=== PATIENT | male | born 1940 | race Two or more races ===

== ENCOUNTER 2025-05-09 22:48 | Observation (INO) ==
--- NOTE | 2025-05-09 23:04 | Emergency Department Note ---
Impression & Plan Influenza A Admission ED Provider Note HPI: History obtained from patient and patient's nephew at the bedside. The patient is a 84-year-old gentleman with history of hypertension, type 2 diabetes, hyperlipidemia, who presents to the emergency department with a chief complaint of fever and confusion. Patient presents with his nephew at the bedside, he states over the past several days since the patient has been visiting him from out of town the patient has developed a cough, low-grade fever, and he seems to be slow to respond to some questions. He has had a diminished appetite today and overall complains of generalized weakness. Patient is alert on arrival, he is not fully oriented to place or year but he is oriented to self. Patient does not have any focal deficits on arrival. Patient is febrile on arrival but otherwise hemodynamically stable. Presenting blood pressure is 157/88, heart rate is within normal limits, temperature is 38.4 on arrival. Patient is saturating at 97% on room air on arrival. ROS: - Per HPI Differential Diagnosis: Viral upper respiratory infection to include COVID-19, influenza A, pneumonia, urinary tract infection, sepsis, meningitis, stroke, amongst other potential pathologies. *Outpatient medications and allergy history reviewed. PE: General: Alert HEENT: Normocephalic, trachea midline Eyes: Extraocular eye movement is intact, no scleral erythema Pulmonary: Clear to auscultation bilaterally, no wheezing Cardio: Regular rate and rhythm GI: Abdomen is soft to palpation : No suprapubic tenderness MSK: No evidence of trauma or malformation of the extremities, no edema Skin: No evidence of rash Neuro: Alert, no focal deficits, symmetrical facial movements are appreciated, no drift of the upper extremities or lower extremities with testing against gravity Psychiatric: Cooperative, oriented to self but not fully to time or place INDEPENDENT INTERPRETATIONS: night monitor: (As interpreted by myself): - An order was placed for continuous cardiac monitoring - Patient was noted to be in sinus rhythm with a rate of 92 EKG: (As interpreted by myself): Rate: 97 Rhythm: Sinus rhythm Intervals: Within normal limits ST changes: No ST elevation Time: 2254 Chest x-ray: (As interpreted by myself): No focal infiltrate Interventions provided in ED: - IV fluid bolus, Tylenol, potassium chloride, Tamiflu Medical Decision Making: IV was established and lab work obtained, patient was placed on night monitor. Patient was given Tylenol for fever. Lab work shows no leukocytosis, hemoglobin is stable at 12.5, platelet count is slightly low 124, venous blood gas shows pH of 7.44 and a pCO2 that is normal. CMP shows hyponatremia 126, potassium is slightly low at 3.2, there is no evidence of any acute renal failure, lactic acid is normal, troponin is negative, procalcitonin is low. Viral panel testing was obtained and the patient is positive for influenza A. I suspect this is the source of fever. Chest x-ray does not show any evidence of pneumonia, CT imaging of the head was obtained and shows no evidence of stroke or acute intracranial process. On my reassessment the patient is resting comfortably in bed, he was placed on nasal cannula oxygen for desaturations to 88% on room air and had good improvement in his oxygenation. I discussed admission with the patient's family including his nephew and his niece at the bedside who are both physicians. At this time they would like the patient to be admitted which I think is reasonable given his borderline oxygen saturations as well as his confusion. [facility] hospitalist service was consulted for admission and the patient was placed for admission in stable condition. Consultants/Discussions held with other healthcare providers: - Hospitalist, Dr. Dumont Disposition discussion held by myself with: - Patient's family at the bedside * CRITICAL CARE TIME: ( 38 ) minutes - Stabilization of hypoxia with oxygen saturations at 88% on room air requiring supplemental oxygen for correction, time spent at bedside, interpretation of diagnostic studies, discussion with other physicians and arrangement of admission. Diagnosis: 1. Hypoxia, acute 2. Influenza A infection, acute 3. Metabolic encephalopathy, acute 4. Hyponatremia, acute 5. Hypokalemia, acute Disposition: Admission Azeem Joyner DO Emergency Medicine Past Med/Surg History Problem List (Updated 05/10/25 @ 01:25 by Azeem Joyner DO) Influenza A (Acute) Social History Smoking Status: Never smoker Feels Safe at Home: No Allergies Allergies Allergy/AdvReac Type Severity Reaction Status Date / Time No Known Allergies Allergy Verified 05/09/25 23:44 Home Meds Home Medications Medication Instructions Recorded Confirmed amlodipine 10 mg tablet 10 mg PO QAM 05/10/25 05/10/25 atorvastatin 20 mg tablet 20 mg PO QPM 05/10/25 05/10/25 famotidine 40 mg tablet 40 mg PO DAILY 05/10/25 05/10/25 hydrochlorothiazide 12.5 mg tablet 12.5 mg PO QAM 05/10/25 05/10/25 hydrocortisone-pramoxine 1 %-1 % 1 applic DC BID PRN Hemorrhoids 05/10/25 05/10/25 rectal cream metformin 500 mg tablet 500 mg PO BIDM 05/10/25 05/10/25 Results & Data (ED) Vital Signs Vital Signs - 24 hr 05/09/25 22:40 05/09/25 22:40 05/09/25 22:55 Temperature 38.4 C H Temperature Source Oral Pulse Rate 96 H 90 Pulse Rate [Apical] Pulse Rhythm [Apical] Pulse Strength [Apical] Respiratory Rate 16 Respiratory Effort / Characteristics Respiratory Depth Respiratory Pattern Blood Pressure 157/88 H Blood Pressure [Left Arm] Blood Pressure Mean 111 Blood Pressure Mean [Left Arm] Blood Pressure Position [Left Arm] Pulse Oximetry 98 97 Oxygen Delivery Method Room Air Room Air Oxygen Flow Rate Sepsis Recent Fever Within 48 Hours Yes Sepsis New/Unexplained Change in Mental Status No Sepsis Action Taken by Nursing No Action Required 05/10/25 00:15 05/10/25 00:18 05/10/25 00:30 Temperature Temperature Source Pulse Rate Pulse Rate [Apical] 83 Pulse Rhythm [Apical] Regular Pulse Strength [Apical] Normal Respiratory Rate 19 Respiratory Effort / Characteristics Non-Labored Spontaneous Respiratory Depth Normal Respiratory Pattern Regular Blood Pressure Blood Pressure [Left Arm] 136/67 Blood Pressure Mean Blood Pressure Mean [Left Arm] 90 Blood Pressure Position [Left Arm] Lying Pulse Oximetry 88 L 97 96 Oxygen Delivery Method Room Air Nasal Cannula Nasal Cannula Oxygen Flow Rate 2 2 Sepsis Recent Fever Within 48 Hours Sepsis New/Unexplained Change in Mental Status Sepsis Action Taken by Nursing 05/10/25 01:00 Temperature Temperature Source Pulse Rate Pulse Rate [Apical] 92 H Pulse Rhythm [Apical] Pulse Strength [Apical] Normal Respiratory Rate 17 Respiratory Effort / Characteristics Non-Labored Spontaneous Respiratory Depth Normal Respiratory Pattern Regular Blood Pressure Blood Pressure [Left Arm] 143/77 H Blood Pressure Mean Blood Pressure Mean [Left Arm] 99 Blood Pressure Position [Left Arm] Pulse Oximetry 97 Oxygen Delivery Method Nasal Cannula Oxygen Flow Rate 2 Sepsis Recent Fever Within 48 Hours Sepsis New/Unexplained Change in Mental Status Sepsis Action Taken by Nursing Laboratory Data 05/09/25 23:20 12/26/25 23:20 Lab Results 05/09/25 Range/Units 23:20 WBC 5.50 (4.8-10.8) K/ul RBC 4.75 (4.70-6.10) M/uL Hgb 12.5 L (14.0-18.0) g/dL Hct 36.2 L (42.0-52.0) % MCV 76.2 L (80.0-100.0) fL MCH 26.3 (25.0-34.0) pg MCHC 34.5 (32.0-36.0) g/dL RDW Std Deviation 39.4 (36.4-46.3) fL RDW Coeff of Claudia 14.5 (11.5-14.5) % Plt Count 124 L (130-400) K/uL MPV 10.6 (9.4-12.4) fL Immature Gran % (Auto) 0.4 % Neut % (Auto) 66.7 % Lymph % (Auto) 12.7 % [place] % (Auto) 19.5 % Eos % (Auto) 0.2 % Baso % (Auto) 0.5 % Neut # (Auto) 3.67 (1.40-6.50) K/uL Lymph # (Auto) 0.70 L (1.20-3.40) K/uL [place] # (Auto) 1.07 H (0.11-0.59) K/uL Eos # (Auto) 0.01 (0.00-0.50) K/uL Baso # (Auto) 0.03 (0.00-0.20) K/uL Immature Gran # (Auto) 0.02 (0.01-0.20) K/uL PT 11.1 (9.0-12.0) Seconds INR 1.1 (0.9-1.1) VBG pH 7.44 H (7.36-7.41) VBG pCO2 49 (38-50) mmHg VBG pO2 27 mmHg VBG HCO3 33 mmol/L VBG O2 Saturation < 60.0 % VBG Base Excess 7.8 mEq/L Sodium 126 L (136-145) mmol/L Potassium 3.2 L (3.5-5.1) mmol/L Chloride 86 L (98-107) mmol/L Carbon Dioxide 31 (21-32) mmol/L Anion Gap 9 (3-11) BUN 13 (6-23) mg/dl Creatinine 0.77 (0.6-1.4) mg/dl Est Cr Clr Drug Dosing 65.6 ml/min eGFR 88.83 BUN/Creatinine Ratio 16.9 (10-20) Glucose 145 H (70-99(Fasting)) mg/dl Lactate 1.6 (0.4-2.0) mmol/L Calcium 9.0 (8.6-10.3) mg/dl Magnesium 1.7 (1.7-2.4) mg/dl Total Bilirubin 0.6 (0.2-1.0) mg/dl Direct Bilirubin 0.1 (0-0.2) mg/dl AST 22 (13-39) U/L ALT 20 (7-52) U/L Alkaline Phosphatase 72 (34-104) U/L Troponin I High Sens 11.0 (0-20) pg/ml Total Protein 7.1 (6.0-8.3) gm/dl Albumin 4.1 (3.4-5.0) gm/dl Procalcitonin 0.09 (0-0.5) ng/ml SARS-CoV-2 (PCR) NEGATIVE (Negative) Influenza Type A (PCR) Positive A (Neg) Influenza Type B (PCR) Negative (Neg) RSV (RT-PCR) Negative (Neg) Administered Medications Discontinued Medications Acetaminophen (Acetaminophen 500 Mg Tab) 1,000 mg PO NOW STA Stop: 05/09/25 23:06 Last Admin: 05/09/25 23:12 Dose: 1,000 mg Documented By: WILMER Sodium Chloride (Nss) 1,000 mls @ 999 mls/hr IV .Q1H1M OSITO Stop: 05/10/25 00:15 Last Infusion: 05/10/25 00:39 Dose: Infused Documented By: Admin: 05/09/25 23:25 Dose: 999 mls/hr Documented By: WILMER Oseltamivir Phosphate (Oseltamivir Phosphate 75 Mg Cap) 75 mg PO NOW STA Stop: 05/10/25 00:33 Last Admin: 05/10/25 00:37 Dose: 75 mg Documented By: WILMER Potassium Chloride (Potassium Chloride Pwd 20 Meq Pack) 40 meq PO NOW STA Stop: 05/10/25 00:08 Last Admin: 05/10/25 00:37 Dose: 40 meq Documented By: WILMER Imaging Data Radiologist's Impression: Chest X-Ray 05/09/25 23:01 Exam(s): XR CXR 1 VIEW EXAM: XR Chest, 1 View CLINICAL HISTORY: Reason for exam: Sepsis. TECHNIQUE: Frontal view of the chest. COMPARISON: No relevant prior studies available. FINDINGS: Lungs: Unremarkable. No consolidation. Pleural space: Unremarkable. No pneumothorax. Heart: Unremarkable. No cardiomegaly. Mediastinum: Unremarkable. Normal mediastinal contour. Bones/joints: Unremarkable. No acute fracture. IMPRESSION: Normal chest x-ray. Electronically signed by: Pedro Buitrago MD 05/10/25 01:[address] 05/09/25 23:02 CR Exam(s): CT HEAD Without Contrast EXAM: CT Head Without Intravenous Contrast CLINICAL HISTORY: Reason for exam: AMS. OTHER: Other Notes: ams, confusion TECHNIQUE: Axial computed tomography images of the head/brain without intravenous contrast. CTDI is 36.67 mGy and DLP is 624.41 mGy-cm. Automated exposure control was utilized for the study. A dose lowering technique was utilized adhering to the principles of ALARA. COMPARISON: No relevant prior studies available. FINDINGS: Brain: Mild ischemic microangiopathy. No hemorrhage. Ventricles: Unremarkable. No ventriculomegaly. Bones/joints: Unremarkable. No acute fracture. Soft tissues: Unremarkable. Sinuses: Polyp or mucus retention cyst left maxillary sinus inflammatory maxillary sinus. Mastoid air cells: Unremarkable as visualized. No mastoid effusion. IMPRESSION: No acute findings in the head/brain. Communications: Call Doctor Stroke Electronically signed by: Pedro Buitrago MD 05/10/25 01:11 AM Discharge Plan Visit Data Chief Complaint: Confusion Stated Complaint: Confusion ED Provider: Azeem Joyner Discharge Problem: Influenza A Patient Disposition: Admitted As Inpatient Condition: Fair Forms Stand Alone Forms: My [employer] Prescriptions Prescriptions: No Action metformin 500 mg tablet 500 mg PO BIDM atorvastatin 20 mg tablet 20 mg PO QPM famotidine 40 mg tablet 40 mg PO DAILY amlodipine 10 mg tablet 10 mg PO QAM hydrochlorothiazide 12.5 mg tablet 12.5 mg PO QAM hydrocortisone-pramoxine 1-1 % cream 1 applic DC BID PRN (Reason: Hemorrhoids) Referrals Referrals: PCP,NO [Physician] -
[2025-05-09] MEDS: ACETAMINOPHEN 500 MG TAB PO STA (23:12)
[2025-05-09] MEDS: SODIUM CHLORIDE 0.9% 1,000 ML IV SCH (23:25)
[2025-05-09 23:45] LABS: Base Excess VBG 7.8 mEq/L; HCO3 VBG 33 mmol/L; Oxygen Saturation VBG < 60.0 %; PCO2 VBG 49 mmHg (38-50); PO2 VBG 27 mmHg; pH VBG 7.44 (7.36-7.41)
[2025-05-09 23:48] LABS: Hematocrit (blood only) 36.2 % (42.0-52.0); Hemoglobin 12.5 g/dL (14.0-18.0); Immature Granulocytes # (auto) 0.02 K/uL (0.01-0.20); Immature Granulocytes % (auto) 0.4 %; Mean Corpuscular Hemoglobin 26.3 pg (25.0-34.0); Mean Corpuscular Volume 76.2 fL (80.0-100.0); Platelet Count 124 K/uL (130-400); RDW Standard Deviation 39.4 fL (36.4-46.3); Red Blood Count 4.75 M/uL (4.70-6.10); White Blood Count 5.50 K/ul (4.8-10.8)
[2025-05-10 00:04] LABS: Alanine Aminotransferase 20.0 U/L (7-52); Albumin Level 4.1 gm/dl (3.4-5.0); Alkaline Phosphatase 72.0 U/L (34-104); Anion Gap 9.0 (3-11); Bilirubin,Total 0.6 mg/dl (0.2-1.0); Blood Urea Nitrogen 13.0 mg/dl (6-23); Calcium 9.0 mg/dl (8.6-10.3); Carbon Dioxide 31.0 mmol/L (21-32); Chloride 86.0 mmol/L (98-107); Creatinine Clr Calc Pharmacy 65.6 ml/min; Glucose 145.0 mg/dl (70-99(Fasting)); Magnesium 1.7 mg/dl (1.7-2.4); Potassium 3.2 mmol/L (3.5-5.1); Sodium 126.0 mmol/L (136-145); Total Protein 7.1 gm/dl (6.0-8.3)
[2025-05-10 00:10] LABS: INR 1.1 (0.9-1.1); Prothrombin Time 11.1 Seconds (9.0-12.0)
[2025-05-10 00:22] LABS: Influenza A virus by PCR Positive (Neg); Influenza B virus by PCR Negative (Neg); SARS CoV2 RNA(COVID-19) Ceph NEGATIVE (Negative)
[2025-05-10] MEDS: OSELTAMIVIR PHOSPHATE 75 MG CAP PO STA (00:37)
[2025-05-10] MEDS: POTASSIUM CHLORIDE PWD 20 MEQ PACK PO STA (00:37)
--- NOTE | 2025-05-10 01:13 | CT Scan Report ---
Exam(s): CT HEAD Without Contrast EXAM: CT Head Without Intravenous Contrast CLINICAL HISTORY: Reason for exam: AMS. OTHER: Other Notes: ams, confusion TECHNIQUE: Axial computed tomography images of the head/brain without intravenous contrast. CTDI is 36.67 mGy and DLP is 624.41 mGy-cm. Automated exposure control was utilized for the study. A dose lowering technique was utilized adhering to the principles of ALARA. COMPARISON: No relevant prior studies available. FINDINGS: Brain: Mild ischemic microangiopathy. No hemorrhage. Ventricles: Unremarkable. No ventriculomegaly. Bones/joints: Unremarkable. No acute fracture. Soft tissues: Unremarkable. Sinuses: Polyp or mucus retention cyst left maxillary sinus inflammatory maxillary sinus. Mastoid air cells: Unremarkable as visualized. No mastoid effusion. IMPRESSION: No acute findings in the head/brain. Communications: Call Doctor Stroke Electronically signed by: Pedro Buitrago MD 05/10/25 01:11 AM
--- NOTE | 2025-05-10 01:14 | XRay Report ---
Exam(s): XR CXR 1 VIEW EXAM: XR Chest, 1 View CLINICAL HISTORY: Reason for exam: Sepsis. TECHNIQUE: Frontal view of the chest. COMPARISON: No relevant prior studies available. FINDINGS: Lungs: Unremarkable. No consolidation. Pleural space: Unremarkable. No pneumothorax. Heart: Unremarkable. No cardiomegaly. Mediastinum: Unremarkable. Normal mediastinal contour. Bones/joints: Unremarkable. No acute fracture. IMPRESSION: Normal chest x-ray. Electronically signed by: Pedro Buitrago MD 05/10/25 01:13 AM
--- NOTE | 2025-05-10 02:23 | History & Physical Report ---
Date of Service May 10, 2025 Assessment & Plan (1) Influenza A: Plan: 84-year-old male who is from [place] visiting his nephew in [place] with past med history significant for hypertension, hyperlipidemia, GERD, diabetes presents with cough and low-grade fever and some confusion and found to have flu positive. Last few days patient developed cough . Last night had low-grade fever and Tylenol and Benadryl given. Because of cough he was not able to sleep. Today his appetite was down and was feeling weak. is in the room. As per he was slightly confused as he could not answer couple of questions. Currently patient says feeling better. Able to answer questions appropriately. Denies any headache. No runny nose or sore throat. Has dry cough. Denies any chest pain. No nausea. No shortness of breath. No abdominal pain. No diarrhea. Has some constipation. Denies blood in the stools. Micturating okay. No rash. In the ER oxygen saturation were 88% on room air but on 2 L saturating fine. Influenza A Mild confusion Mild hypoxia requiring 2 L oxygen Chest x-ray is okay CT head is okay Received Tamiflu and fluids in the ER Will continue Tamiflu Antitussives Close monitor Hypokalemia Potassium 3.2 Replaced in ER Will follow repeat labs Hyponatremia Sodium 126 Will check serum osmolality, urine osmolality and urine sodium levels Received fluids in the ER Slow correction Will follow labs in a.m. Can consider nephrology consult Thrombocytopenia Platelets 124 Mostly from viral illness Will monitor the labs Hypertension Continue amlodipine Will hold hydrochlorothiazide for Hyponatremia Will monitor Diabetes Hold metformin Sliding scale Will follow HbA1c levels Hyperlipidemia On statin DVT prophylaxis Heparin subcu Monitor platelets Disposition Telemetry Full code. History of Present Illness Chief Complaint: Fever and cough and mild confusion Primary Care Provider: FIDEL STEVE 84-year-old male who is from [place] visiting his nephew in [place] with past med history significant for hypertension, hyperlipidemia, GERD, diabetes presents with cough and low-grade fever and some confusion and found to have flu positive. Last few days patient developed cough . Last night had low-grade fever and Tylenol and Benadryl given. Because of cough he was not able to sleep. Today his appetite was down and was feeling weak. is in the room. As per he was slightly confused as he could not answer couple of questions. Currently patient says feeling better. Able to answer questions appropriately. Denies any headache. No runny nose or sore throat. Has dry cough. Denies any chest pain. No nausea. No shortness of breath. No abdominal pain. No diarrhea. Has some constipation. Denies blood in the stools. Micturating okay. No rash. In the ER oxygen saturation were 88% on room air but on 2 L saturating fine. Past medical history. As mentioned above. Past surgical history. None Social history. Quit smoking in . Used to drink alcohol occasionally but since last 2 years not drinking. Family history. Mother had diabetes. Allergies Allergy/AdvReac Type Severity Reaction Status Date / Time No Known Allergies Allergy Verified 05/09/25 23:44 Home Medications Medication Instructions Recorded Confirmed Type amlodipine 10 mg tablet 10 mg PO QAM 05/10/25 05/10/25 History atorvastatin 20 mg tablet 20 mg PO QPM 05/10/25 05/10/25 History famotidine 40 mg tablet 40 mg PO DAILY 05/10/25 05/10/25 History hydrochlorothiazide 12.5 mg tablet 12.5 mg PO QAM 05/10/25 05/10/25 History hydrocortisone-pramoxine 1 %-1 % 1 applic IN BID PRN Hemorrhoids 05/10/25 05/10/25 History rectal cream metformin 500 mg tablet 500 mg PO BIDM 05/10/25 05/10/25 History Past Med/Surg History Problem List (Updated 05/10/25 @ 01:25 by Azeem Joyner DO) Influenza A (Acute) Social History Smoking Status: Former smoker Tobacco Type: Cigarettes Hx Alcohol Use: No Hx Substance Use: No Preferred Language: Estonian Communication Ability: Effective Manager Group Required: No Beliefs That Will Affect Care: None Current Living Situation: Spouse Feels Safe at Home: Yes Safety Concerns: Feels Safe At This Time Assistive Devices: Glasses Review of Systems Review of Systems: All systems reviewed & are unremarkable except as noted in HPI & below Physical Exam Physical Exam: General-Not in acute distress. Head- atraumatic Eyes- PERRL. ENT- oropharynx clear Neck- supple, no JVD. Lungs- clear to auscultation no wheezing or crackles. Heart- regular rate and rhythm; no murmur, no gallop. Abdomen- normal bowel sounds, soft, nontender, no distension. Extremities- trace pretibial edema, no erythema seen Neuro- alert, oriented PERRL, no facial palsy; no dysarthria; moves extremities Results & Data Results & Data Vital Signs (Past 12 Hours) Vital Signs Temp Pulse Pulse Resp BP BP Pulse Ox 05/10/25 01:41 36.8 C 05/10/25 01:00 92 H 17 143/77 H 97 05/10/25 00:30 83 19 136/67 96 05/10/25 00:18 97 05/10/25 00:15 88 L 05/09/25 22:55 90 05/09/25 22:40 97 05/09/25 22:40 38.4 C H 96 H 16 157/88 H 98 O2 Del Method O2 Flow Rate 05/10/25 01:41 05/10/25 01:00 Nasal Cannula 2 05/10/25 00:30 Nasal Cannula 2 05/10/25 00:18 Nasal Cannula 2 05/10/25 00:15 Room Air 05/09/25 22:55 05/09/25 22:40 Room Air 05/09/25 22:40 Room Air Diagnostic Findings Laboratory Results WBC 5.50 K/ul (4.8-10.8) 05/09/25 23:20 RBC 4.75 M/uL (4.70-6.10) 05/09/25 23:20 Hgb 12.5 g/dL (14.0-18.0) L 05/09/25 23:20 Hct 36.2 % (42.0-52.0) L 05/09/25 23:20 MCV 76.2 fL (80.0-100.0) L 05/09/25 23:20 MCH 26.3 pg (25.0-34.0) 05/09/25 23:20 MCHC 34.5 g/dL (32.0-36.0) 05/09/25 23:20 RDW Std Deviation 39.4 fL (36.4-46.3) 05/09/25 23:20 RDW Coeff of Claudia 14.5 % (11.5-14.5) 05/09/25 23:20 Plt Count 124 K/uL (130-400) L 05/09/25 23:20 MPV 10.6 fL (9.4-12.4) 05/09/25 23:20 Immature Gran % (Auto) 0.4 % 05/09/25 23:20 Neut % (Auto) 66.7 % 05/09/25 23:20 Lymph % (Auto) 12.7 % 05/09/25 23:20 [place] % (Auto) 19.5 % 05/09/25 23:20 Eos % (Auto) 0.2 % 05/09/25 23:20 Baso % (Auto) 0.5 % 05/09/25 23:20 Neut # (Auto) 3.67 K/uL (1.40-6.50) 05/09/25 23:20 Lymph # (Auto) 0.70 K/uL (1.20-3.40) L 05/09/25 23:20 [place] # (Auto) 1.07 K/uL (0.11-0.59) H 05/09/25 23:20 Eos # (Auto) 0.01 K/uL (0.00-0.50) 05/09/25 23:20 Baso # (Auto) 0.03 K/uL (0.00-0.20) 05/09/25 23:20 Immature Gran # (Auto) 0.02 K/uL (0.01-0.20) 05/09/25 23:20 PT 11.1 Seconds (9.0-12.0) 05/09/25 23:20 INR 1.1 (0.9-1.1) 05/09/25 23:20 VBG pH 7.44 (7.36-7.41) H 05/09/25 23:20 VBG pCO2 49 mmHg (38-50) 05/09/25 23:20 VBG pO2 27 mmHg 05/09/25 23:20 VBG HCO3 33 mmol/L 05/09/25 23:20 VBG O2 Saturation < 60.0 % 05/09/25 23:20 VBG Base Excess 7.8 mEq/L 05/09/25 23:20 Sodium 126 mmol/L (136-145) L 05/09/25 23:20 Potassium 3.2 mmol/L (3.5-5.1) L 05/09/25 23:20 Chloride 86 mmol/L (98-107) L 05/09/25 23:20 Carbon Dioxide 31 mmol/L (21-32) 05/09/25 23:20 Anion Gap 9 (3-11) 05/09/25 23:20 BUN 13 mg/dl (6-23) 05/09/25 23:20 Creatinine 0.77 mg/dl (0.6-1.4) 05/09/25 23:20 Est Cr Clr Drug Dosing 65.6 ml/min 05/09/25 23:20 eGFR 88.83 05/09/25 23:20 BUN/Creatinine Ratio 16.9 (10-20) 05/09/25 23:20 Glucose 145 mg/dl (70-99(Fasting)) H 05/09/25 23:20 Lactate 1.6 mmol/L (0.4-2.0) 05/09/25 23:20 Calcium 9.0 mg/dl (8.6-10.3) 05/09/25 23:20 Magnesium 1.7 mg/dl (1.7-2.4) 05/09/25 23:20 Total Bilirubin 0.6 mg/dl (0.2-1.0) 05/09/25 23:20 Direct Bilirubin 0.1 mg/dl (0-0.2) 05/09/25 23:20 AST 22 U/L (13-39) 05/09/25 23:20 ALT 20 U/L (7-52) 05/09/25 23:20 Alkaline Phosphatase 72 U/L (34-104) 05/09/25 23:20 Troponin I High Sens 11.0 pg/ml (0-20) 05/09/25 23:20 Total Protein 7.1 gm/dl (6.0-8.3) 05/09/25 23:20 Albumin 4.1 gm/dl (3.4-5.0) 05/09/25 23:20 Procalcitonin 0.09 ng/ml (0-0.5) 05/09/25 23:20 SARS-CoV-2 (PCR) NEGATIVE (Negative) 05/09/25 23:20 Influenza Type A (PCR) Positive (Neg) A 05/09/25 23:20 Influenza Type B (PCR) Negative (Neg) 05/09/25 23:20 RSV (RT-PCR) Negative (Neg) 05/09/25 23:20 Impressions Chest X-Ray 05/09/25 23:01 Exam(s): XR CXR 1 VIEW EXAM: XR Chest, 1 View CLINICAL HISTORY: Reason for exam: Sepsis. TECHNIQUE: Frontal view of the chest. COMPARISON: No relevant prior studies available. FINDINGS: Lungs: Unremarkable. No consolidation. Pleural space: Unremarkable. No pneumothorax. Heart: Unremarkable. No cardiomegaly. Mediastinum: Unremarkable. Normal mediastinal contour. Bones/joints: Unremarkable. No acute fracture. IMPRESSION: Normal chest x-ray. Electronically signed by: Pedro Buitrago MD 05/10/25 01:[address] 05/09/25 23:02 CR Exam(s): CT HEAD Without Contrast EXAM: CT Head Without Intravenous Contrast CLINICAL HISTORY: Reason for exam: AMS. OTHER: Other Notes: ams, confusion TECHNIQUE: Axial computed tomography images of the head/brain without intravenous contrast. CTDI is 36.67 mGy and DLP is 624.41 mGy-cm. Automated exposure control was utilized for the study. A dose lowering technique was utilized adhering to the principles of ALARA. COMPARISON: No relevant prior studies available. FINDINGS: Brain: Mild ischemic microangiopathy. No hemorrhage. Ventricles: Unremarkable. No ventriculomegaly. Bones/joints: Unremarkable. No acute fracture. Soft tissues: Unremarkable. Sinuses: Polyp or mucus retention cyst left maxillary sinus inflammatory maxillary sinus. Mastoid air cells: Unremarkable as visualized. No mastoid effusion. IMPRESSION: No acute findings in the head/brain. Communications: Call Doctor Stroke Electronically signed by: Pedro Buitrago MD 05/10/25 01:11 AM ECG Additional Comments: ECG. Sinus rhythm with occasional PVCs rate of 97. No acute ST changes seen. QTc 429. Code Status & VTE Plan VTE Prophylaxis Plan VTE Prophylaxis will be ordered: Yes
[2025-05-10 02:26] LABS: Appearance Urine Clear (Clear); Glucose Urine UA Negative (Negative)
[2025-05-10] MEDS ORDERED: GLUCOSE 10 TAB/TUBE PO PRN (04:00)
[2025-05-10] MEDS ORDERED: NITROGLYCERIN SL 0.4 MG/TAB TAB SL PRN (04:00)
[2025-05-10] MEDS ORDERED: GLUCAGON FOR INJ 1 MG VIAL SQ PRN (04:00)
[2025-05-10] MEDS ORDERED: CARBOHYDRATES FOR HYPOGLYCEMIA PO PRN (04:00)
[2025-05-10] MEDS ORDERED: DEXTROSE 50% 50 ML SYRINGE IV PRN (04:00)
[2025-05-10] MEDS ORDERED: GLUCOSE 40% GEL 15 GM TUBE PO PRN (04:00)
[2025-05-10 06:16] LABS: Hematocrit (blood only) 31.8 % (42.0-52.0); Hemoglobin 11.1 g/dL (14.0-18.0); Immature Granulocytes # (auto) 0.01 K/uL (0.01-0.20); Immature Granulocytes % (auto) 0.2 %; Mean Corpuscular Hemoglobin 26.6 pg (25.0-34.0); Mean Corpuscular Volume 76.3 fL (80.0-100.0); Platelet Count 119 K/uL (130-400); RDW Standard Deviation 39.7 fL (36.4-46.3); Red Blood Count 4.17 M/uL (4.70-6.10); White Blood Count 4.03 K/ul (4.8-10.8)
[2025-05-10 06:36] LABS: Anion Gap 6.0 (3-11); Blood Urea Nitrogen 11.0 mg/dl (6-23); Calcium 8.1 mg/dl (8.6-10.3); Carbon Dioxide 31.0 mmol/L (21-32); Chloride 93.0 mmol/L (98-107); Chloride 94.0 mmol/L (98-107); Creatinine Clr Calc Pharmacy 68.3 ml/min; Creatinine Clr Calc Pharmacy 72.2 ml/min; Glucose 108.0 mg/dl (70-99(Fasting)); Magnesium 1.8 mg/dl (1.7-2.4); Potassium 3.3 mmol/L (3.5-5.1); Potassium 3.4 mmol/L (3.5-5.1); Sodium 130.0 mmol/L (136-145); Sodium 131.0 mmol/L (136-145)
[2025-05-10 07:00] LABS: Hemoglobin A1C 6.8 % (4.5-5.6)
[2025-05-10] MEDS: POTASSIUM CHLORIDE CRTAB 20 MEQ TABCR PO STA (09:14)
[2025-05-10] MEDS: OSELTAMIVIR PHOSPHATE 75 MG CAP PO SCH (09:14)
[2025-05-10] MEDS: FAMOTIDINE 40 MG TABLET PO SCH (09:15)
[2025-05-10] MEDS: BENZONATATE 100 MG CAPSULE PO SCH (09:15)
[2025-05-10] MEDS: INSULIN ASPART PER UNIT CHARGE SC SCH (09:16)
[2025-05-10] MEDS: HEPARIN SOD 5,000 UNIT/0.5 ML VIAL SQ SCH (10:49)
[2025-05-10 12:43] LABS: Anion Gap 7.0 (3-11); Blood Urea Nitrogen 11.0 mg/dl (6-23); Calcium 8.9 mg/dl (8.6-10.3); Carbon Dioxide 32.0 mmol/L (21-32); Chloride 91.0 mmol/L (98-107); Creatinine Clr Calc Pharmacy 62.4 ml/min; Glucose 145.0 mg/dl (70-99(Fasting)); Potassium 3.5 mmol/L (3.5-5.1); Sodium 130.0 mmol/L (136-145)
--- NOTE | 2025-05-10 13:25 | Hospitalist Progress Note ---
Date of Service May 10, 2025 Assessment & Plan (1) Influenza A: Plan: 84-year-old male who is from [place] visiting his nephew in [place] with past med history significant for hypertension, hyperlipidemia, GERD, diabetes presents with cough and low-grade fever and some confusion and found to have flu positive. Last few days patient developed cough . Last night had low-grade fever and Tylenol and Benadryl given. Because of cough he was not able to sleep. Today his appetite was down and was feeling weak. is in the room. As per he was slightly confused as he could not answer couple of questions. Currently patient says feeling better. Able to answer questions appropriately. Denies any headache. No runny nose or sore throat. Has dry cough. Denies any chest pain. No nausea. No shortness of breath. No abdominal pain. No diarrhea. Has some constipation. Denies blood in the stools. Micturating okay. No rash. In the ER oxygen saturation were 88% on room air but on 2 L saturating fine. Acute bronchitis due to Influenza A Acute metabolic encephalopathy likely due to hyponatremia/infection --CX:Normal chest x-ray. --Influenza A screen positive -- COVID, RSV screen negative Antitussives as needed Continue Tamiflu Empirically started on IV Rocephin Continue isolation precautions Mental status back to baseline Hypoosmolar hyponatremia Presented with sodium level 126 Likely due to dehydration, HCTZ use Serum and urine osmolality low HCTZ held Received gentle IV fluids Sodium levels improved to 130 Monitor sodium levels closely Hypokalemia Replace and monitor Thrombocytopenia Likely due to viral illness No acute bleeding issues Monitor platelet count Hypertension Continue amlodipine Hold hydrochlorothiazide due to Hyponatremia Started on losartan 25 mg daily for better control of blood pressure Monitor blood pressure DM II HbA1c 6.8 Hold metformin for now Continue insulin sliding scale while hospitalized Monitor blood glucose level Hyperlipidemia Continue statin DVT Px: Heparin SQ CODE STATUS Full code Disposition Expect to discharge home as able Admission and Anticipated Discharge Date Admission Date: May 10, 2025 Subjective Patient is seen and examined at bedside Confusion seems to be resolved Family at bedside Still has cough and generalized weakness Denies any chest pain, dyspnea, nausea, vomiting, abdominal pain Saturating low 90s on room air Review of Systems Review of Systems: All systems reviewed & are unremarkable except as noted in Subjective Physical Exam Physical Exam: Physical Exam: Vitals signs as noted above General Appearance:Moderately built and nourished, no apparent distress Head: normocephalic, Atraumatic Eyes: normal inspection, EOMI Neck: supple, Trachea midline Respiratory/Chest: Normal breath sounds, CTA, No accessory muscle use Cardiovascular: S1, S2, No murmur Abdomen/GI:Soft, Non tender, Bowel sounds present Extremities/Musculoskeletal:normal inspection, no edema Neurologic/Psych:AAOX3, grossly no focal neurological deficits Skin: normal color, warm Results & Data Results & Data Vital Signs (Past 12 Hours) Vital Signs Temp Pulse Pulse Resp BP Pulse Ox O2 Del Method 05/10/25 12:26 37.8 C H 05/10/25 10:45 37.2 C 92 H 18 150/75 H 91 Room Air 05/10/25 09:10 Room Air 05/10/25 08:25 37.3 C 05/10/25 07:40 86 16 161/73 H 98 Room Air 05/10/25 07:19 91 H 05/10/25 04:57 Nasal Cannula 05/10/25 04:01 36.8 C 86 18 169/77 H 94 Room Air 05/10/25 03:36 Nasal Cannula 05/10/25 03:33 77 16 123/63 97 Nasal Cannula 05/10/25 03:14 79 05/10/25 02:00 81 16 124/70 96 Nasal Cannula 05/10/25 01:41 36.8 C O2 Flow Rate 05/10/25 12:26 05/10/25 10:45 05/10/25 09:10 05/10/25 08:25 05/10/25 07:40 05/10/25 07:19 05/10/25 04:57 2 05/10/25 04:01 05/10/25 03:36 2 05/10/25 03:33 2 05/10/25 03:14 05/10/25 02:00 2 05/10/25 01:41 Laboratory Results Short CBC 05/09/25 05/10/25 Range/Units 23:20 05:28 WBC 5.50 4.03 L (4.8-10.8) K/ul Hgb 12.5 L 11.1 L (14.0-18.0) g/dL Hct 36.2 L 31.8 L (42.0-52.0) % Plt Count 124 L 119 L (130-400) K/uL BMP 05/09/25 05/10/25 05/10/25 23:20 05:28 05:28 Sodium 126 L 131 L 130 L Potassium 3.2 L 3.4 L Chloride 86 L Carbon Dioxide 31 BUN 13 Creatinine 0.77 Glucose 145 H Calcium 9.0 05/10/25 05/10/25 05/10/25 05:28 05:28 05:28 Sodium Potassium 3.3 L Chloride 94 L 93 L Carbon Dioxide 31 31 BUN 11 Creatinine Glucose Calcium 05/10/25 05/10/25 05/10/25 05:28 05:28 05:28 Sodium Potassium Chloride Carbon Dioxide BUN 11 Creatinine 0.70 0.74 Glucose 108 H 108 H Calcium 8.1 L 05/10/25 05/10/25 05:28 11:57 Sodium 130 L Potassium 3.5 Chloride 91 L Carbon Dioxide 32 BUN 11 Creatinine 0.81 Glucose 145 H Calcium 8.1 L 8.9 Liver Function 05/09/25 Range/Units 23:20 Total Bilirubin 0.6 (0.2-1.0) mg/dl Direct Bilirubin 0.1 (0-0.2) mg/dl AST 22 (13-39) U/L ALT 20 (7-52) U/L Alkaline Phosphatase 72 (34-104) U/L Albumin 4.1 (3.4-5.0) gm/dl Urine 05/10/25 Range/Units 01:20 Urine Color Yellow Urine Appearance Clear (Clear) Urine pH 7.5 (4.5-7.5) Ur Specific [place] 1.007 (1.000-1.030) Urine Protein Negative (Negative) Urine Glucose (UA) Negative (Negative)
[2025-05-10] MEDS: SODIUM CHLORIDE 0.9% 250 ML IV ONE (13:30)
[2025-05-10] MEDS: LOSARTAN POTASSIUM 25 MG TAB PO SCH (13:41)
[2025-05-10] MEDS: cefTRIAXone SODIUM 1,000 MG/50 ML BAG IV SCH (13:41)
[2025-05-10] MEDS: ACETAMINOPHEN 325 MG TAB PO PRN (17:07)
[2025-05-10 21:06] LABS: Anion Gap 9.0 (3-11); Blood Urea Nitrogen 15.0 mg/dl (6-23); Calcium 8.2 mg/dl (8.6-10.3); Carbon Dioxide 27.0 mmol/L (21-32); Chloride 93.0 mmol/L (98-107); Creatinine Clr Calc Pharmacy 60.9 ml/min; Glucose 163.0 mg/dl (70-99(Fasting)); Potassium 3.6 mmol/L (3.5-5.1); Sodium 129.0 mmol/L (136-145)
[2025-05-10] MEDS: ATORVASTATIN 20 MG TAB PO SCH (21:06)
[2025-05-11 06:13] LABS: Hematocrit (blood only) 33.5 % (42.0-52.0); Hemoglobin 11.5 g/dL (14.0-18.0); Mean Corpuscular Hemoglobin 26.3 pg (25.0-34.0); Mean Corpuscular Volume 76.5 fL (80.0-100.0); Platelet Count 114 K/uL (130-400); RDW Standard Deviation 39.5 fL (36.4-46.3); Red Blood Count 4.38 M/uL (4.70-6.10); White Blood Count 3.05 K/ul (4.8-10.8)
[2025-05-11 06:27] LABS: Anion Gap 9.0 (3-11); Blood Urea Nitrogen 11.0 mg/dl (6-23); Calcium 8.5 mg/dl (8.6-10.3); Carbon Dioxide 28.0 mmol/L (21-32); Chloride 95.0 mmol/L (98-107); Creatinine Clr Calc Pharmacy 63.1 ml/min; Glucose 107.0 mg/dl (70-99(Fasting)); Magnesium 1.9 mg/dl (1.7-2.4); Potassium 3.5 mmol/L (3.5-5.1); Sodium 132.0 mmol/L (136-145)
--- NOTE | 2025-05-11 11:30 | Discharge Summary ---
Discharge Summary Date of Service May 11, 2025 Principal Dx & Hospital Course #1 = Principal Diagnosis (1) Influenza A: (2) Hyponatremia: (3) Acute metabolic encephalopathy: (4) Thrombocytopenia: (5) Hypertension: (6) Hyperlipidemia: (7) GERD (gastroesophageal reflux disease): Plan 84-year-old male who is from [place] visiting his nephew in [place] with past med history significant for hypertension, hyperlipidemia, GERD, diabetes presents on 05/10/2025 with cough and low-grade fever and some confusion and found to have flu positive. Acute bronchitis secondary to Influenza A --CX:Normal chest x-ray. --Influenza A screen positive -- COVID, RSV screen negative Started on Tamiflu and prescribed 5 day course to complete 7 total days Symptom management with antipyretics and antitussives as needed Hypoosmolar hyponatremia-> improving Presented with sodium level 126, serum osmolality 274, urine osmolality 259 Likely due to dehydration, HCTZ use Discontinue HCTZ Sodium levels improved to 132 after IV fluids Recommend repeat BMP at PCP follow up appointment Acute metabolic encephalopathy-> resolved Confusion likely secondary to hyponatremia and flu Mental status back to baseline Thrombocytopenia Likely due to viral illness No acute bleeding issues Recommend repeat CBC at PCP follow up appointment Hypertension Switched HCTZ to losartan 25mg daily due to hyponatremia as above Discontinue HCTZ Continue losartan and amlodipine DM II HbA1c 6.8 Continue metformin Hyperlipidemia Continue atorvastatin GERD Continue famotidine Patient seen in collaboration with Dr. Adrian. Please see addendum. Notes For Next Care Provider 84 year old male with significant PMH who was admitted at [facility] from 05/10-05/11 for influenza A and hyponatremia. Managed with Tamiflu and IV fluids. Stopped HCTZ and started losartan for blood pressure management. Recommend repeat labs at PCP follow up. Medication Changes From Visit START Tamiflu 75mg twice daily for 5 days START Losartan 25mg once daily STOP Hydrochlorothiazide Admission HPI Per Admitting Provider 84-year-old male who is from [place] visiting his nephew in [place] with past med history significant for hypertension, hyperlipidemia, GERD, diabetes presents with cough and low-grade fever and some confusion and found to have flu positive. Last few days patient developed cough . Last night had low-grade fever and Tylenol and Benadryl given. Because of cough he was not able to sleep. Today his appetite was down and was feeling weak. is in the room. As per he was slightly confused as he could not answer couple of questions. Currently patient says feeling better. Able to answer questions appropriately. Denies any headache. No runny nose or sore throat. Has dry cough. Denies any chest pain. No nausea. No shortness of breath. No abdominal pain. No diarrhea. Has some constipation. Denies blood in the stools. Micturating okay. No rash. In the ER oxygen saturation were 88% on room air but on 2 L saturating fine. Past medical history. As mentioned above. Past surgical history. None Social history. Quit smoking in . Used to drink alcohol occasionally but since last 2 years not drinking. Family history. Mother had diabetes. Admission Exam Per Admitting Provider General-Not in acute distress. Head- atraumatic Eyes- PERRL. ENT- oropharynx clear Neck- supple, no JVD. Lungs- clear to auscultation no wheezing or crackles. Heart- regular rate and rhythm; no murmur, no gallop. Abdomen- normal bowel sounds, soft, nontender, no distension. Extremities- trace pretibial edema, no erythema seen Neuro- alert, oriented PERRL, no facial palsy; no dysarthria; moves extremities Discharge Exam General/Psych: WD/WN, sitting up in bed, NAD, conversing easily Head: normocephalic, atraumatic Eyes: normal inspection, PERRL, conjunctivae pink Neck: normal visual inspection, trachea midline Respiratory: normal respiratory effort, lungs clear to auscultation, no wheeze/rales/rhonchi, no accessory muscle use Cardiovascular: regular rate and rhythm, no murmur/rub/gallop Extremities: no cyanosis or clubbing, normal peripheral pulses, no BLE edema Abdomen/GI: normal bowel sounds, soft, nontender Neurologic/MSK: A+Ox3, motor strength 5/5, moves all extremities Skin: no rashes, normal color, warm and dry Updated Medication List Medication Instructions Recorded Confirmed Type amlodipine 10 mg tablet 10 mg PO QAM 05/10/25 05/10/25 History atorvastatin 20 mg tablet 20 mg PO QPM 05/10/25 05/10/25 History famotidine 40 mg tablet 40 mg PO DAILY 05/10/25 05/10/25 History hydrocortisone-pramoxine 1 %-1 % 1 applic IN BID PRN Hemorrhoids 05/10/25 05/10/25 History rectal cream metformin 500 mg tablet 500 mg PO BIDM 05/10/25 05/10/25 History losartan 25 mg tablet 25 mg PO QAM #30 tabs 05/11/25 Rx oseltamivir 75 mg capsule (Tamiflu) 75 mg PO BID #10 caps 05/11/25 Rx Hospital Stay Data Consultations 05/10/25 01:21 ED Decision to Admit Stat Diagnostic Imagining Performed Chest X-Ray 05/09/25 23:01 Exam(s): XR CXR 1 VIEW EXAM: XR Chest, 1 View CLINICAL HISTORY: Reason for exam: Sepsis. TECHNIQUE: Frontal view of the chest. COMPARISON: No relevant prior studies available. FINDINGS: Lungs: Unremarkable. No consolidation. Pleural space: Unremarkable. No pneumothorax. Heart: Unremarkable. No cardiomegaly. Mediastinum: Unremarkable. Normal mediastinal contour. Bones/joints: Unremarkable. No acute fracture. IMPRESSION: Normal chest x-ray. Electronically signed by: Pedro Buitrago MD 05/10/25 01:[address] 05/09/25 23:02 CR Exam(s): CT HEAD Without Contrast EXAM: CT Head Without Intravenous Contrast CLINICAL HISTORY: Reason for exam: AMS. OTHER: Other Notes: ams, confusion TECHNIQUE: Axial computed tomography images of the head/brain without intravenous contrast. CTDI is 36.67 mGy and DLP is 624.41 mGy-cm. Automated exposure control was utilized for the study. A dose lowering technique was utilized adhering to the principles of ALARA. COMPARISON: No relevant prior studies available. FINDINGS: Brain: Mild ischemic microangiopathy. No hemorrhage. Ventricles: Unremarkable. No ventriculomegaly. Bones/joints: Unremarkable. No acute fracture. Soft tissues: Unremarkable. Sinuses: Polyp or mucus retention cyst left maxillary sinus inflammatory maxillary sinus. Mastoid air cells: Unremarkable as visualized. No mastoid effusion. IMPRESSION: No acute findings in the head/brain. Communications: Call Doctor Stroke Electronically signed by: Pedro Buitrago MD 05/10/25 01:11 AM Pending Results Patient Have Any Pending Studies at Discharge: Yes Discharge Instructions Given to Patient (Per Discharging Provider) You presented to the hospital with cough, fever, and confusion and were found to have Flu A and a low blood sodium level. You were treated with Tamiflu and will need to complete this course after you leave the hospital. You can continue to take tylenol and cough medicine as needed for symptom management. Your low blood sodium level, and confusion, was likely due to dehydration and continued use of hydrochlorothiazide medication. We stopped your hydrochlorothiazide and replaced it with losartan for blood pressure management. We recommend you see your PCP in the next week or two and have repeat labs drawn to recheck your blood counts and electrolytes. MEDICATION CHANGES: START Tamiflu 75mg twice daily for 5 days START Losartan 25mg once daily STOP Hydrochlorothiazide SUMMARY OF TEST RESULTS: Head CT negative Chest x-ray negative PENDING TEST RESULTS: Blood cultures - preliminary negative RECOMMENDATIONS FOR FOLLOW-UP: Please follow up with your PCP in the next week or two and have repeat labs drawn OTHER INSTRUCTIONS: Seek medical attention if you have: * temperature above 101 * chest pain or trouble breathing * abdominal pain, nausea, vomiting * diarrhea, dark stools or bloody stools * any unanswered questions or concerns Call 911 if symptoms are severe. It has been a pleasure taking care of you. Please take care of yourself. If you have any questions regarding your recent hospitalization please contact [facility] and request [place] @ [phone]. Total Time Total Time Spent Total Time Spent (In Minutes): I spent a total of 35 minutes coordinating, documenting and providing care for this patient excluding time spent in the performance of separately billed services or time spent by another provider/QHP. Supervising Physician Co-Signing Physician Notes Patient is seen and examined at bedside on day of discharge. Feels a lot better today. Ambulating independently with no issues. Mental status back to baseline. Discussed in detail with patient's family at bedside. On exam patient is alert, awake, oriented, grossly no focal deficits, lungs clear to auscultation, S1-S2, no murmur, no pedal edema. Agree with continuing Tamiflu to complete the course for influenza A infection. Afebrile today. Sodium levels improved to 132. Agree with discontinuing HCTZ and starting on losartan for management of blood pressure. Advised to follow-up with PCP with repeat blood work to monitor sodium levels and adjust medications per hypertension. I personally interviewed and examined the patient at bedside. I have reviewed the advanced practitioner's documentation on the date of service referred in note and agree with plan. Patient's care is coordinated with Evie BAZZI. Please refer to the documentation above for details of patient's presentation and for discussion of other issues. I spent a total [id number] coordinating, documenting, and providing care for this patient excluding time spent in the performance of separately billed services or time spent by another provider/QHP.
--- NOTE | 2025-05-11 20:48 | Electrocardiogram Report ---
Test Reason : Blood Pressure : */* mmHG Vent. Rate : 97 BPM Atrial Rate : 97 BPM P-R Int : 144 ms QRS Dur : 96 ms QT Int : 338 ms P-R-T Axes : 49 35 45 degrees QTcB Int : 429 ms Sinus rhythm with occasional Premature ventricular complexes Otherwise normal ECG No previous ECGs available Confirmed by Diana Fuentes ([facility]) on 05/11/2025 8:48:17 PM Referred By: REFERRED SELF Confirmed By: Diana Fuentes
== END 2025-05-11 12:03 | disposition home or self-care (01) | DRG 193 ==
LOC: ED 22:48 → INTOOBSV 05-10 02:12 → 4W 05-10 02:12